=== PATIENT | female | born 1970 | race Hispanic/Latino ===

== ENCOUNTER 2018-06-21 20:17 | Emergency (ER) | payer SELFPAY ==
[2018-06-21] MEDS ORDERED: IPRATROPIUM/ALBUTEROL SULFATE 3 ML SOLUTION IH ONE (20:40)
[2018-06-21 20:53] LABS: BASOPHILS % (AUTO) 0.5 % (0.0-5.0); EOSINOPHILS % (AUTO) 2.1 % (0.0-8.0); HEMATOCRIT 37.4 % (36-48); LYMPHOCYTES % (AUTO) 24.4 % (21.0-51.0); MEAN CORPUSCULAR HGB CONC 32.9 g/dL (32.0-36.0); NUCLEATED RED BLOOD CELLS 0.1 % (0.0-0.19); PLATELET COUNT (AUTO) 285 K/uL (130-400); RED BLOOD CELL COUNT(AUTO) 4.73 MIL/uL (4.00-5.50); WHITE BLOOD COUNT (AUTO) 8.6 K/uL (4.8-10.8)
[2018-06-21 21:03] LABS: APPEARANCE,URINE CLEAR (CLEAR); BILIRUBIN,URINE NEGATIVE (NEGATIVE); COLOR,URINE YELLOW (YELLOW); GLUCOSE, URINE (UA) NEGATIVE (NEGATIVE); KETONES,URINE NEGATIVE (NEGATIVE); LEUKOCYTE ESTERASE ,URINE NEGATIVE (NEGATIVE); NITRATE,URINE NEGATIVE (NEGATIVE); OCCULT BLOOD,URINE MODERATE (NEGATIVE); PROTEIN,URINE 30 (NEGATIVE); UROBILINOGEN,URINE 0.2 mg/dL (0.2-1.0)
[2018-06-21 21:06] LABS: CREATININE 0.7 mg/dL (0.5-1.5); POTASSIUM 3.2 mmol/L (3.5-5.1)
[2018-06-21 21:11] LABS: AMPHET/METH SCREEN,URINE NEGATIVE (NEGATIVE); BARBITURATE SCREEN, URINE NEGATIVE (NEGATIVE); BENZODIAZEPINES SCREEN,URINE NEGATIVE (NEGATIVE); CANNABINOID SCREEN,URINE NEGATIVE (NEGATIVE); COCAINE SCREEN,URINE NEGATIVE (NEGATIVE); OPIATE SCREEN,URINE NEGATIVE (NEGATIVE); PHENCYCLIDINE SCREEN,URINE NEGATIVE (NEGATIVE)
[2018-06-21 21:15] LABS: ALBUMIN 3.2 g/dL (3.5-5.0); BILIRUBIN,TOTAL 0.3 mg/dL (0.2-1.0); TOTAL PROTEIN, SERUM 7.8 g/dL (6.0-8.3)
[2018-06-21 21:20] LABS: BACTERIA,URINE Few /HPF (None Seen); SQUAMOUS EPITHELIAL CELL,UR None Seen /HPF (0-2); WBC,URINE 0-1 /HPF (0-1)
[2018-06-21 21:21] LABS: AMORPHOUS SEDIMENT,UR Rare /LPF (None Seen)
[2018-06-21] MEDS ORDERED: DiphenhydrAMINE HCL 50 MG/ML VIAL ONE (21:42)
[2018-06-21] MEDS ORDERED: KETOROLAC TROMETHAMINE 30MG/ML ONE (21:42)
[2018-06-21] MEDS ORDERED: POTASSIUM CHLORIDE 20 MEQ ERTAB PO ONE (21:42)
[2018-06-21] MEDS ORDERED: PROCHLORPERAZINE EDISYLATE 10 MG/2 ML VIAL ONE (21:43)
== END 2018-06-21 22:40 | disposition home or self-care (01) ==
LOC: EDH 20:17
DX: J20.9 Acute bronchitis, unspecified (principal); R51 Headache; M54.9 Dorsalgia, unspecified; Z98.890 Other specified postprocedural states
CPT/HCPCS: 36415; 70450; 71045; 80053; 80305; 81001; 81025; 82550; 84484; 85025; 87804 ×2; 87880; 93005; 94640; 96374; 96375; 99284; J0780; J1200; J1885

== ENCOUNTER 2020-05-14 15:54 | Inpatient (IN) | payer OTHER, SELFPAY ==
[~2020-05-14] VITALS: Ht 154.9 cm; Wt 76.3 kg
[2020-05-14 16:20] LABS: BASOPHILS % (AUTO) 0.3 % (0.0-5.0); EOSINOPHILS % (AUTO) 0.4 % (0.0-8.0); HEMATOCRIT 46.9 % (36-48); LYMPHOCYTES % (AUTO) 29.6 % (21.0-51.0); MEAN CORPUSCULAR HEMOGLOBIN 28.8 pg (27.0-33.0); MEAN CORPUSCULAR HGB CONC 34.5 g/dL (32.0-36.0); MEAN CORPUSCULAR VOLUME 83.3 fL (79-99); MONOCYTES % (AUTO) 10.5 % (3.0-13.0); NEUTROPHILS % (AUTO) 58.9 % (40.0-77.0); PLATELET COUNT (AUTO) 282 K/uL (130-400); RED BLOOD CELL COUNT(AUTO) 5.63 MIL/uL (4.00-5.50); WHITE BLOOD COUNT (AUTO) 7.7 K/uL (4.8-10.8)
[2020-05-14 16:28] LABS: CREATININE 0.6 mg/dL (0.5-1.5); INR 1.01 (0.85-1.15); POTASSIUM 3.3 mmol/L (3.5-5.1); PROTHROMBIN TIME 10.8 SEC (9.6-11.6)
[2020-05-14 16:29] LABS: PARTIAL THROMBOPLASTIN TIME 26.4 SEC (26.3-35.5)
[2020-05-14 16:32] LABS: ALBUMIN 3.6 g/dL (3.5-5.0); BILIRUBIN,TOTAL 0.4 mg/dL (0.2-1.0); TOTAL PROTEIN, SERUM 9.1 g/dL (6.0-8.3)
[2020-05-14 16:35] LABS: ABG BASE EXCESS 1.9 mmol/L (-2.0-3.0); ABG OXYGEN SATURATION 92.3 % (95.0-99.0); ABG PCO2 39 mmHg (32-45)
[2020-05-14 17:23] LABS: B-TYPE NATRIURETIC PEPTIDE 10 pg/mL (0-100)
[2020-05-14 17:39] LABS: APPEARANCE,URINE Clear (CLEAR); BILIRUBIN,URINE Negative (NEGATIVE); COLOR,URINE Yellow (YELLOW); GLUCOSE, URINE (UA) Negative (NEGATIVE); KETONES,URINE >=80 mg/dL (NEGATIVE); LEUKOCYTE ESTERASE ,URINE Trace (NEGATIVE); NITRATE,URINE Negative (NEGATIVE); OCCULT BLOOD,URINE Moderate (NEGATIVE); PROTEIN,URINE POS 2+ mg/dL (NEGATIVE)
[2020-05-14] MEDS ORDERED: ALBUTEROL INHALER 90MCG/INH IH ONE (17:59)
[2020-05-14] MEDS ORDERED: CEFTRIAXONE SODIUM 1 GM ONE (17:59)
[2020-05-14] MEDS ORDERED: AZITHROMYCIN 250 MG TABLET PO ONE (17:59)
[2020-05-14] MEDS ORDERED: ACETAMINOPHEN-CODEINE 300/30MG TAB ONE (18:00)
[2020-05-14 18:04] LABS: BACTERIA,URINE Few /HPF (None Seen); MUCUS,URINE Few LPF (None Seen); SQUAMOUS EPITHELIAL CELL,UR Few /HPF (0-2)
[2020-05-14] MEDS: CEFTRIAXONE SODIUM 1 GM IVP SCH (20:15)
[2020-05-14] MEDS ORDERED: MAG HYDROX/AL HYDROX/SIMETH ES 30 ML SUSP UDCUP PO PRN (20:15)
[2020-05-14] MEDS ORDERED: NITROGLYCERIN 0.4 MG SL TAB SL PRN (20:15)
[2020-05-14] MEDS: DEXAMETHASONE SOD PHOSPHATE 4 MG/ML 1ML VIAL IVP SCH (20:15)
[2020-05-14] MEDS ORDERED: LACTULOSE 20 GM/30 ML UDCUP PO PRN (20:15)
[2020-05-14] MEDS ORDERED: ALBUTEROL SULFATE 0.083% 2.5 MG/3 ML INH IH PRN (20:15)
[2020-05-14] MEDS ORDERED: DEXAMETHASONE SOD PHOSPHATE 4 MG/ML 1ML VIAL IVP SCH (20:15)
[2020-05-14] MEDS ORDERED: DiphenhydrAMINE HCL 50 MG/ML VIAL IV PRN (20:15)
[2020-05-14] MEDS ORDERED: ERGOCALCIFEROL (VITAMIN D2) 50,000 UNIT CAPSULE PO ONE (20:15)
[2020-05-14] MEDS ORDERED: DIPHENHYDRAMINE HCL 25 MG CAPSULE PO PRN (20:15)
[2020-05-14] MEDS ORDERED: ACETAMINOPHEN 325 MG TAB PO PRN (20:15)
[2020-05-14] MEDS ORDERED: GUAIFENESIN-DM 200/20 MG 10 ML PO PRN (20:15)
[2020-05-14] MEDS: FAMOTIDINE/PF 20 MG/2 ML VIAL IV SCH (21:00)
[2020-05-14] MEDS: ACETYLCYSTEINE 600 MG CAPSULE PO SCH (21:00)
[2020-05-14] MEDS: ASCORBIC ACID 500 MG TAB PO SCH (21:00)
[2020-05-14] MEDS: DOXYCYCLINE HYCLATE 100 MG TABLET PO SCH (21:00)
[2020-05-14] MEDS ORDERED: DEXAMETHASONE SOD PHOSPHATE 10MG/ML 1ML VIAL ONE (23:45)
[2020-05-15] VITALS (7 sets, daily range): BP systolic 112–139; BP diastolic 56–71
[2020-05-15 06:50] LABS: BASOPHILS % (AUTO) 0.3 % (0.0-5.0); EOSINOPHILS % (AUTO) 1.1 % (0.0-8.0); HEMATOCRIT 40.2 % (36-48); LYMPHOCYTES % (AUTO) 34.5 % (21.0-51.0); MEAN CORPUSCULAR HEMOGLOBIN 29.1 pg (27.0-33.0); MEAN CORPUSCULAR HGB CONC 34.3 g/dL (32.0-36.0); MEAN CORPUSCULAR VOLUME 84.6 fL (79-99); MONOCYTES % (AUTO) 14.1 % (3.0-13.0); NEUTROPHILS % (AUTO) 49.7 % (40.0-77.0); PLATELET COUNT (AUTO) 297 K/uL (130-400); RED BLOOD CELL COUNT(AUTO) 4.75 MIL/uL (4.00-5.50); RED CELL DISTRIBUTION WIDTH 12.4 % (11.0-15.5); WHITE BLOOD COUNT (AUTO) 6.2 K/uL (4.8-10.8)
[2020-05-15 07:05] LABS: ALBUMIN 3.2 g/dL (3.5-5.0); BILIRUBIN,TOTAL 0.4 mg/dL (0.2-1.0); CREATININE 0.7 mg/dL (0.5-1.5); CRP QUANTITATIVE 20.8 mg/L (0.00-9.0); POTASSIUM 3.4 mmol/L (3.5-5.1); TOTAL PROTEIN, SERUM 7.7 g/dL (6.0-8.3)
[2020-05-15] MEDS: DEXAMETHASONE SOD PHOSPHATE 4 MG/ML 1ML VIAL IVP SCH ×2 (08:36→19:57)
[2020-05-15] MEDS: FAMOTIDINE/PF 20 MG/2 ML VIAL IV SCH ×2 (08:36→19:57)
[2020-05-15] MEDS: CEFTRIAXONE SODIUM 1 GM IVP SCH ×2 (08:36→19:57)
[2020-05-15] MEDS: ASCORBIC ACID 500 MG TAB PO SCH ×3 (08:36→19:58)
[2020-05-15] MEDS: ZINC SULFATE 220 CAPSULE PO SCH (08:37)
[2020-05-15] MEDS: ENOXAPARIN SODIUM 40 MG/0.4 ML SYRINGE SQ SCH (08:37)
[2020-05-15] MEDS: DOXYCYCLINE HYCLATE 100 MG TABLET PO SCH ×2 (08:37→19:57)
[2020-05-15] MEDS: ACETYLCYSTEINE 600 MG CAPSULE PO SCH ×2 (08:37→19:57)
[2020-05-15] MEDS ORDERED: POTASSIUM CHLORIDE 10% ELIXIR 20 MEQ/15 ML UDCUP PO PRN (14:15)
[2020-05-15] MEDS ORDERED: POTASSIUM CHLORIDE 20MEQ/100ML 100 ML IV PRN (14:15)
[2020-05-15] MEDS ORDERED: LIDOCAINE HCL-MPF 1% 2ML VIAL IV PRN (14:15)
[2020-05-15] MEDS ORDERED: PHARMACY COMMUNICATION**REMDESIVIR ORDER MISC SCH (14:15)
[2020-05-15] MEDS: POTASSIUM CHLORIDE 20 MEQ ERTAB PO PRN ×2 (18:21→22:43)
[2020-05-15] MEDS ORDERED: AZIT500T4 PO (21:37)
[2020-05-15] MEDS ORDERED: LORA10TA7 PO (21:37)
[2020-05-15] MEDS ORDERED: IPRA42SP NS (21:37)
[2020-05-15] MEDS ORDERED: ASCO500T10 PO (21:37)
[2020-05-15] MEDS ORDERED: BUDE0.255 IH (21:37)
[2020-05-15] MEDS ORDERED: IBUP-2070 PO (21:37)
[2020-05-15] MEDS ORDERED: IVER3TAB PO (21:37)
[2020-05-15] MEDS ORDERED: guaifenesin (21:37)
[2020-05-15] MEDS ORDERED: OSEL75CA17 PO (21:37)
[2020-05-16 03:58] VITALS: BP 139/66
[2020-05-16 06:32] LABS: BASOPHILS % (AUTO) 0.1 % (0.0-5.0); HEMATOCRIT 43.5 % (36-48); LYMPHOCYTES % (AUTO) 26.6 % (21.0-51.0); MEAN CORPUSCULAR HGB CONC 34.3 g/dL (32.0-36.0); MEAN CORPUSCULAR VOLUME 84.8 fL (79-99); NEUTROPHILS % (AUTO) 59.6 % (40.0-77.0); PLATELET COUNT (AUTO) 355 K/uL (130-400); RED BLOOD CELL COUNT(AUTO) 5.13 MIL/uL (4.00-5.50); RED CELL DISTRIBUTION WIDTH 12.1 % (11.0-15.5); WHITE BLOOD COUNT (AUTO) 8.5 K/uL (4.8-10.8)
[2020-05-16 06:50] LABS: ALBUMIN 3.4 g/dL (3.5-5.0); BILIRUBIN,TOTAL 0.3 mg/dL (0.2-1.0); CREATININE 0.7 mg/dL (0.5-1.5); CRP QUANTITATIVE 16.5 mg/L (0.00-9.0); TOTAL PROTEIN, SERUM 8.4 g/dL (6.0-8.3)
[2020-05-16 08:00] VITALS: BP 139/71
[2020-05-16] MEDS: DOXYCYCLINE HYCLATE 100 MG TABLET PO SCH ×2 (09:15→21:03)
[2020-05-16] MEDS: DEXAMETHASONE SOD PHOSPHATE 4 MG/ML 1ML VIAL IVP SCH ×2 (09:15→21:03)
[2020-05-16] MEDS: CEFTRIAXONE SODIUM 1 GM IVP SCH ×2 (09:15→21:03)
[2020-05-16] MEDS: ACETYLCYSTEINE 600 MG CAPSULE PO SCH ×2 (09:15→21:03)
[2020-05-16] MEDS: ASCORBIC ACID 500 MG TAB PO SCH ×3 (09:16→21:03)
[2020-05-16] MEDS: ENOXAPARIN SODIUM 40 MG/0.4 ML SYRINGE SQ SCH (09:16)
[2020-05-16] MEDS: ZINC SULFATE 220 CAPSULE PO SCH (09:16)
[2020-05-16] MEDS: FAMOTIDINE/PF 20 MG/2 ML VIAL IV SCH ×2 (09:16→21:03)
[2020-05-16 12:00] VITALS: BP 136/65
[2020-05-16 16:00] VITALS: BP 137/78
[2020-05-16 19:45] LABS: BASOPHILS % (AUTO) 0.3 % (0.0-5.0); HEMATOCRIT 42.1 % (36-48); LYMPHOCYTES % (AUTO) 18.6 % (21.0-51.0); MEAN CORPUSCULAR HEMOGLOBIN 29.1 pg (27.0-33.0); MEAN CORPUSCULAR HGB CONC 34.2 g/dL (32.0-36.0); MEAN CORPUSCULAR VOLUME 85.1 fL (79-99); MONOCYTES % (AUTO) 11.3 % (3.0-13.0); NEUTROPHILS % (AUTO) 67.7 % (40.0-77.0); PLATELET COUNT (AUTO) 361 K/uL (130-400); RED BLOOD CELL COUNT(AUTO) 4.95 MIL/uL (4.00-5.50); RED CELL DISTRIBUTION WIDTH 12.3 % (11.0-15.5); WHITE BLOOD COUNT (AUTO) 12.1 K/uL (4.8-10.8)
[2020-05-16 20:31] VITALS: BP 137/73
[2020-05-16] MEDS: ACETAMINOPHEN 325 MG TAB PO PRN (21:16)
[2020-05-16] MEDS: ONDANSETRON HCL 4 MG/2 ML VIAL IV PRN (22:31)
[2020-05-17 00:25] VITALS: BP 132/69
[2020-05-17 04:40] VITALS: BP 138/62
[2020-05-17 06:00] LABS: BASOPHILS % (AUTO) 0.2 % (0.0-5.0); HEMATOCRIT 42.5 % (36-48); LYMPHOCYTES % (AUTO) 16.8 % (21.0-51.0); MEAN CORPUSCULAR HEMOGLOBIN 28.1 pg (27.0-33.0); MEAN CORPUSCULAR HGB CONC 33.4 g/dL (32.0-36.0); MEAN CORPUSCULAR VOLUME 84.2 fL (79-99); MONOCYTES % (AUTO) 6.9 % (3.0-13.0); NEUTROPHILS % (AUTO) 74.4 % (40.0-77.0); PLATELET COUNT (AUTO) 390 K/uL (130-400); RED BLOOD CELL COUNT(AUTO) 5.05 MIL/uL (4.00-5.50); RED CELL DISTRIBUTION WIDTH 12.3 % (11.0-15.5); WHITE BLOOD COUNT (AUTO) 13.7 K/uL (4.8-10.8)
[2020-05-17 06:23] LABS: ALBUMIN 3.1 g/dL (3.5-5.0); BILIRUBIN,TOTAL 0.3 mg/dL (0.2-1.0); CREATININE 0.7 mg/dL (0.5-1.5); CRP QUANTITATIVE 3.8 mg/L (0.00-9.0); TOTAL PROTEIN, SERUM 7.8 g/dL (6.0-8.3)
[2020-05-17 08:26] VITALS: BP 136/63
[2020-05-17] MEDS: CEFTRIAXONE SODIUM 1 GM IVP SCH (08:26)
[2020-05-17] MEDS: FAMOTIDINE/PF 20 MG/2 ML VIAL IV SCH (08:27)
[2020-05-17] MEDS: DEXAMETHASONE SOD PHOSPHATE 4 MG/ML 1ML VIAL IVP SCH (08:27)
[2020-05-17] MEDS: ASCORBIC ACID 500 MG TAB PO SCH ×2 (08:29→13:16)
[2020-05-17] MEDS: ZINC SULFATE 220 CAPSULE PO SCH (08:29)
[2020-05-17] MEDS: DOXYCYCLINE HYCLATE 100 MG TABLET PO SCH (08:29)
[2020-05-17] MEDS: ACETYLCYSTEINE 600 MG CAPSULE PO SCH (08:29)
[2020-05-17] MEDS: ENOXAPARIN SODIUM 40 MG/0.4 ML SYRINGE SQ SCH (08:30)
[2020-05-17] MEDS: ONDANSETRON HCL 4 MG/2 ML VIAL IV PRN (08:44)
[2020-05-17] MEDS: ACETAMINOPHEN 325 MG TAB PO PRN (08:45)
[2020-05-17] MEDS ORDERED: DOXY100T2 PO (11:57)
[2020-05-17] MEDS ORDERED: DEXA6TAB PO (11:57)
[2020-05-17] MEDS ORDERED: ALBU0.63 IH (11:58)
[2020-05-17 12:09] VITALS: BP 109/58
[2020-05-17] MEDS ORDERED: ASPI-1005 PO (12:35)
[2020-05-17 16:49] VITALS: BP 136/70
== END 2020-05-17 18:00 | disposition home or self-care (01) | DRG 177 ==
LOC: EDH 15:54 → OBSVTOIN 15:55 → EDHIP 15:55 → 4BH 05-15 00:12 → 2CH 05-15 14:43 → 4BH 05-15 14:51
PROVIDERS: ADMIT Family Medicine; ATTEND Family Medicine
PROC: XW13325 Transfusion of Convalescent Plasma (Nonautologous) into Peripheral Vein, Percutaneous Approach, New Technology Group 5 (ICD-10-PCS; principal; 2020-05-15)
DX: U07.1 COVID-19 (principal); J12.82 Pneumonia due to coronavirus disease 2019; J96.01 Acute respiratory failure with hypoxia; J45.909 Unspecified asthma, uncomplicated; F41.9 Anxiety disorder, unspecified
CPT/HCPCS: 36415; 36600; 71045; 71250; 80053; 81001; 82550; 82728; 82803; 82948; 83605; 83615; 83880; 84145; 84484; 85025; 85378; 85610; 85730; 86140; 86900; 86901; 86927; 87040; 87426; 93005; G0378; J0696; J1100; J1650; J2405; J3490

== ENCOUNTER 2020-05-26 13:40 | Emergency (ER) | payer OTHER, SELFPAY ==
[~2020-05-26 13:40] MED LIST: ALBU0.63 IH; ASCO500T10 PO; ASPI-1005 PO; BUDE0.255 IH; DEXA6TAB PO; DOXY100T2 PO; IBUP-2070 PO; IPRA42SP NS; LORA10TA7 PO; guaifenesin
[2020-05-26 14:11] LABS: BASOPHILS % (AUTO) 0.3 % (0.0-5.0); EOSINOPHILS % (AUTO) 1.3 % (0.0-8.0); HEMATOCRIT 38.3 % (36-48); LYMPHOCYTES % (AUTO) 21.2 % (21.0-51.0); MEAN CORPUSCULAR HEMOGLOBIN 29.2 pg (27.0-33.0); MEAN CORPUSCULAR HGB CONC 33.4 g/dL (32.0-36.0); MEAN CORPUSCULAR VOLUME 87.2 fL (79-99); MONOCYTES % (AUTO) 10.7 % (3.0-13.0); NEUTROPHILS % (AUTO) 65.9 % (40.0-77.0); PLATELET COUNT (AUTO) 321 K/uL (130-400); RED BLOOD CELL COUNT(AUTO) 4.39 MIL/uL (4.00-5.50); WHITE BLOOD COUNT (AUTO) 11.2 K/uL (4.8-10.8)
[2020-05-26 14:20] LABS: CREATININE 0.9 mg/dL (0.5-1.5); POTASSIUM 4.2 mmol/L (3.5-5.1)
[2020-05-26 14:25] LABS: INR 0.93 (0.85-1.15); PROTHROMBIN TIME 10.2 SEC (9.6-11.6)
[2020-05-26 14:26] LABS: PARTIAL THROMBOPLASTIN TIME 21.4 SEC (26.3-35.5)
[2020-05-26 14:27] LABS: BILIRUBIN,TOTAL 0.3 mg/dL (0.2-1.0); TOTAL PROTEIN, SERUM 6.9 g/dL (6.0-8.3)
[2020-05-26] MEDS ORDERED: IOHEXOL-350 75 ML VIAL IV ONE (14:55)
[2020-05-26 15:04] LABS: APPEARANCE,URINE Clear (CLEAR); BILIRUBIN,URINE Negative (NEGATIVE); COLOR,URINE Yellow (YELLOW); GLUCOSE, URINE (UA) Negative (NEGATIVE); KETONES,URINE Negative (NEGATIVE); LEUKOCYTE ESTERASE ,URINE Trace (NEGATIVE); NITRATE,URINE Negative (NEGATIVE); OCCULT BLOOD,URINE Trace (NEGATIVE); PH,URINE 6.5 (5.0-8.0); PROTEIN,URINE Negative (NEGATIVE); UROBILINOGEN,URINE 0.2 mg/dL (0.2-1.0)
[2020-05-26 15:17] LABS: BACTERIA,URINE Rare /HPF (None Seen); RBC,URINE 0-1 /HPF (0-1); SQUAMOUS EPITHELIAL CELL,UR Rare /HPF (0-2); TRANSITIONAL EPI CELLS,URINE Rare /HPF (None Seen); WBC,URINE 0-1 /HPF (0-1)
[2020-05-26] MEDS ORDERED: ENOXAPARIN SODIUM 80 MG/0.8 ML SQ ONE (15:35)
== END 2020-05-26 17:22 | disposition home or self-care (01) ==
LOC: EDH 13:40
DX: I82.401 Acute embolism and thrombosis of unspecified deep veins of right lower extremity (principal); J45.909 Unspecified asthma, uncomplicated; Z98.890 Other specified postprocedural states
CPT/HCPCS: 36415; 71275; 80053; 81001; 83880; 84484; 85025; 85610; 85730; 93005; 96372; 99285; J1650; Q9967

== ENCOUNTER 2024-09-17 19:25 | Emergency (ER) | payer SELFPAY ==
[~2024-09-17] VITALS: Ht 157.5 cm; Wt 79.4 kg
[2024-09-17] MEDS: ketOROlac 15MG/ML VIAL (15MG/ML) IM ONE (20:18)
[2024-09-17] MEDS: HYDROcodone/acetaMINOPHEN 10/325 MG TAB PO ONE (20:18)
[2024-09-17] MEDS: LIDOCAINE 4% ADH..PATCH TP ONE (20:18)
--- NOTE | 2024-09-17 20:48 | ERN ---
General Chief Complaint: Other Problems Stated Complaint: PAIN Time Seen by MD: 19:32 History of Present Illness Initial Comments 53-year-old female history of dyslipidemia and hypertension presents for pain to the left buttock into the left thigh. Very sensitive pain present for 2-3 days. Has been increasing in severity. She reports that her skin is very sensitive and any sort of touching is very painful. She denies pain with movement or deep pain no bony pain. Does not comfortable with the back. No neurologic changes. No motor vascular changes. No trauma. There was no actual skin lesions at this point. She has never had this pain before. Allergies: Coded Allergies: No Known Drug Allergies (Verified Allergy, Unknown, 05/14/20) Home Meds Active Scripts Aspirin (ASPIRIN 81MG CHEW TAB) 81 Mg Tab.chew, 81 MG PO DAILY for 14 Days, #14 TAB.CHEW 0 Refills Prov:WALTER EUGEN[facility] 05/17/20 Albuterol Sulfate (Albuterol Sulfate) 0.63 Mg/3 Ml Vial.neb, 0.63 MG IH BID PRN for SHORTNESS OF BREATH for 30 Days, #1 INH 0 Refills Prov:WALTER [facility] 05/17/20 Doxycycline Hyclate (Doxycycline Hyclate) 100 Mg Tablet, 100 MG PO BID for 4 Days, #8 TAB 0 Refills Prov:WALTER [facility] 05/17/20 Dexamethasone (Dexamethasone) 6 Mg Tablet, 6 MG PO DAILY for 4 Days, #4 TAB 0 Refills Prov:WALTER [facility] 05/17/20 Reported Medications Ipratropium Taylor (Ipratropium Taylor) 15 Ml [place], 2.5 ML NS Q8H, SPRAY nebulized 05/15/20 Ascorbic Acid (Ascorbic Acid) 500 Mg Tablet, 500 MG PO DAILY, TAB 05/15/20 Budesonide (Budesonide) 0.25 Mg/2 Ml Ampul.neb, 0.25 MG IH Q12H 05/15/20 Loratadine (Loratadine) 10 Mg Tablet, 10 MG PO DAILY, TAB 05/15/20 Ibuprofen (Ibuprofen) 600 Mg Tablet, 600 MG PO Q6H PRN for PAIN, TAB 05/15/20 [guaifenesin] No Conflict Check guaifenesin/oxolamine 10mls po q6 hours fro cough 05/15/20 Past Medical History Past Medical History: High Cholesterol, Hypertension Past Surgical History: ROS Dictation CONSTITUTIONAL: No chills, no fever, no weakness, no diaphoresis, no malaise. HEAD/FACE: No signs of trauma. EENT: No eye pain, no blurred vision, no tearing, no double vision, no ear pain, no ear discharge, no nose pain, no nasal congestion, no throat pain, no throat swelling, no mouth pain. RESPIRATORY: No cough, no orthopnea, no SOB, no stridor, no wheezing. CARDIOVASCULAR: No chest pain, no edema, no palpitations, no syncope. GASTROINTESTINAL/ABDOMINAL: No abdominal pain, no constipation, no diarrhea, no nausea, no vomiting. GENITOURINARY: No abnormal discharge, no dysuria, no frequent urination, no hematuria. No complaints of pain in the genitals. MUSCULOSKELETAL: Left buttock/skin pain INTEGUMENTARY: No change in color, no change in hair/nails, no dryness, no lesion, no lumps, no rash. NEUROLOGICAL/PSYCH: No anxiety, not depressed, no emotional problem, no heada kristofer, no numbness, no pre-existing deficit, no history of seizures, no tremors, no weakness. HEMATOLOGIC/LYMPHATIC: Not anemic, no history of blood clots, no apparent bleeding, no bruising, glands not swollen. All Systems Negative, Except as Noted. Physical Exam Physical Exam Dictation VITAL SIGNS: Reviewed. GENERAL APPEARANCE: Alert, oriented x3, no acute distress HEAD AND FACE: Non-traumatic. EYES: PERRL, pink conjunctivas, eyelid no trauma, anterior chamber clear. EARS: Pinnas intact and no signs of trauma or erythema. Ear canals clear and no discharge. TMs no erythema. NOSE: No discharge, no bleeding. OROPHARYNX: Mouth normal, teeth no caries, tongue pink. Pharynx clear, no erythema. Tonsils no exudates, no abscesses noted. Mucous membrane moist. NECK: Supple, non-tender, no thyromegaly, no masses, no JVD, no bruits. BREAST: Deferred. CHEST: No tenderness, no crepitus, no paradoxical movement, no retractions. LUNGS: Clear, well-ventilated, symmetric, no rales, no wheezing, no rhonchi, no stridor, good breath sounds bilaterally. HEART: Regular rate, regular rhythm, no murmur, no gallops. VASCULAR: No peripheral edema. ABDOMEN: Soft, positive bowel sounds, nondistended, no guarding, nontender, no rebound, no masses no hepatomegaly, no splenomegaly, no Manzano's sign, no hernias. RECTAL: Deferred. GENITAL: Deferred. NEUROLOGICAL: Normal speech, gross motor function intact, gross sensory function intact. MUSCULOSKELETAL: Neck nontender, full range of motion, back nontender, full range of motion. Very tender left buttock area radiating to the left lateral thigh no skin lesions EXTREMITIES: Nontender, full range of motion. SKIN: Color pink, dry, no turgor, no rash, no lacerations, no abrasions, no contusions. LYMPHATICS: Deferred. MDM CC: Left buttock and thigh pain at the skin Historian: Patient Comorbidities: Dyslipidemia hypertension obesity Limitations by social determinants of health: None Differential diagnosis: MSK pain, hip pain, arthritis, likely skin changes like shingles or cellulitis On clinical exam she is very sensitive through the buttock onto the lateral hip at the skin. It appears to be in a dermatome. I do not see any obvious lesions. Able to flex and extend the hip, knees, ankles and she is ambulatory. No red flags in her back pain, she has no midline tenderness. No fevers. No urinary incontinence no bowel changes. X-ray shows no bony abnormalities per my independent interpretation of the pelvis. Symptoms are most consistent with a early shingles. Patient received IM Toradol and p.o. [place] in the ER. Plan will be to discharge with valacyclovir, [place] for pain ibuprofen for pain and skin creams. We will recommend PCP follow up since the diagnosis is not clear if there are no lesions but I suspect she may get some. ED Course Orders Procedure Category Date Status Time Pelvis 1-2vws RAD 09/17/24 Taken 19:44 Ketorolac PHA 09/17/24 Complete Tromethamine 15mg/Ml 20:00 Hydrocodone/Apap PHA 09/17/24 Complete 10/325 Tab ([place] 10) 20:00 Lidocaine (Lidocaine PHA 09/17/24 Complete Patch 4%) 20:00 Current Medications Medications (Trade) Dose Ordered Sig/Billy Route PRN Reason Start Time Stop Time Status Last Admin Dose Admin Acetaminophen/ Hydrocodone Bitart (NORco 10) 1 tab ONCE ONCE PO 09/17/24 20:00 09/17/24 20:01 DC 09/17/24 20:18 Ketorolac Tromethamine (toRADol) 15 mg ONCE ONCE IM 09/17/24 20:00 09/17/24 20:01 DC 09/17/24 20:18 Lidocaine (Lidocaine Patch 4%) 1 each ONCE ONCE TP 09/17/24 20:00 09/17/24 20:01 DC 09/17/24 20:18 Vital Signs Date Time Temp Pulse Resp B/P (MAP) Pulse Ox O2 Delivery O2 Flow Rate FiO2 09/17/24 19:34 97.7 86 20 170/90 100 Room Air* 0 21 09/17/24 19:26 97.7 86 20 170/90 100 Room Air DX & DISP Disposition: Discharge Departure Impression: Primary Impression: Acute thigh pain Condition: Stable Scripts Hydrocodone/Acetaminophen (Hydrocodon-Acetaminophen 5-325) 5 Mg-325 Mg Tablet 1-2 TAB PO Q6HPRN PRN for pain for 5 Days, #30 TAB 0 Refills Prov: GREGG MEDINA DO 09/17/24 Valacyclovir HCl (Valacyclovir) 1,000 Mg Tablet 1 TAB PO TID for 7 Days, #21 TAB 0 Refills Prov: GREGG MEDINA DO 09/17/24 Additional Instructions: Your x-ray is unremarkable. As we discussed, your symptoms are consistent with an early shingles infection. You may develop a blistering rash over the next few days to a week. I have prescribed valacyclovir, which is a shingles medication. Take the entire course as prescribed. For pain, I have prescribed [place] tabs. You can take 1-2 tabs up to 4 times a day as needed for severe pain. I also recommend that you take 800 mg of ibuprofen up to 3 times a day as needed for pain. This medication is [id number]. You can also try [id number] creams such as capsaicin or patches such as lidocaine patches. Keep the rash/wound clean and dry. Avoid contact with women, infants, in an immunocompromised individuals. Please follow up with your primary doctor in one week for re-evaluation. Please return to the emergency department as needed. Referrals: SELF,REFERRAL (PCP) GREGG MEDINA DO September 17, 2024 20:48
[2024-09-17] MEDS ORDERED: HYDR-4060 PO (20:53)
[2024-09-17] MEDS ORDERED: VALA100031 PO (20:53)
[2024-09-17 20:57] VITALS: BP 158/74; PULSE 82; RESP 20; TEMP 97.7; O2SAT 100
--- NOTE | 2024-09-17 20:59 | HMCIMG ---
PELVIS 1-2VWS HISTORY: Pain COMPARISON: None TECHNIQUE: A frontal projection of the pelvis was obtained. FINDINGS: There is no acute displaced fracture or dislocation. Bilateral hip joint space narrowing is seen. Degenerative changes are seen. IMPRESSION: 1. Findings as described above.
[2024-09-18] MEDS ORDERED: HYDR-4060 PO (10:10)
[2024-09-18] MEDS ORDERED: VALA100031 PO (10:10)
== END 2024-09-17 21:01 | disposition home or self-care (01) ==
LOC: EDH 19:25
DX: M79.652 Pain in left thigh (principal); E66.9 Obesity, unspecified; E78.00 Pure hypercholesterolemia, unspecified; I10 Essential (primary) hypertension; Z79.52 Long term (current) use of systemic steroids; Z79.82 Long term (current) use of aspirin
CPT/HCPCS: 99283; 72170; 96372; J1885